=== PATIENT | female | born 1990 | race African-American/Black ===

== ENCOUNTER 2019-12-12 07:41 | Emergency (ER) | payer OTHER, SELFPAY ==
--- NOTE | ~2019-12-12 | XR_ITS ---
EXAMINATION: XR shoulder LT min 2V INDICATION: Left shoulder pain TECHNIQUE: Four views of the left shoulder are obtained. COMPARISON: None available FINDINGS: There is no fracture, dislocation, or subluxation. The bones, soft tissues, and joint space s are normal. IMPRESSION: 1. No acute osseous abnormality. Reviewed, dictated and finalized at location A. [employer] PROFESS[employer]
--- NOTE | ~2019-12-12 | US_ITS ---
EXAMINATION: US venous doppler UE LT DATE: 12/12/2019 08:34 INDICATION: Left upper limb swelling TECHNIQUE: Grayscale ultrasound images without and with compression and Doppler ultrasound images of the left upper extremity veins were obtained. COMPARISON: None. FINDINGS: The left internal jugular vein, subclavian vein, axillary vein, brachial veins, basilic vein, cephali c vein, radial vein, and ulnar vein are patent. IMPRESSION: 1. No evidence of deep venous thrombosis. Reviewed, dictated and finalized at location A. [employer]
[2019-12-12 07:54] VITALS: BP 136/66; PULSE 103; RESP 20; TEMP 36.2; O2SAT 98
--- NOTE | 2019-12-12 08:18 | ED.UPPEXIN ---
HPI - Extremity Injury (Upper) General Chief Complaint: Extremity Injury, Upper Stated Complaint: Left arm swelling Time Seen by Provider: 12/12/19 07:51 Source: patient Mode of arrival: ambulatory Limitations: no limitations History of Present Illness HPI narrative: This patient is a 29 year old right hand dominant female who presents for evaluation of left shoulder pain. She states she noticed pain 2 days. She has pain with movement of her left shoulder. She noticed this morning she had left shoulder swelling. She denies fever, chills, nausea, vomiting, abdominal pain or so. She denies trauma. She does lift her 3 year old son frequently. complaint: injury to: left and shoulder Onset (ago): day(s) (2) Related Data Allergies Allergy/AdvReac Type Severity Reaction Status Date / Time Shrimp Allergy Mild Swelling Uncoded 12/12/19 07:56 Review of Systems Review of Systems: All systems reviewed & are unremarkable except as noted in HPI and below Constitutional: Constitutional: Denies chills and Denies fever(s) Cardiovascular: Cardiovascular: Denies chest pain Respiratory: Respiratory: Denies cough and Denies dyspnea Gastrointestinal: Gastrointestinal: Denies abdominal pain, Denies nausea and Denies vomiting PMFSH Past Medical History Medical History (Updated 12/12/19 @ 10:02 by Tawanna Rm MD) Asthma Surgical History Surgical History (Updated 12/12/19 @ 09:58 by Tawanna Rm MD) No pertinent past surgical history Social History Social History (Updated 12/12/19 @ 09:58 by Tawanna Rm MD) Smoking status: Never smoker Alcohol intake: never Substance use: never Exam Const: General: no acute distress and alert Orientation/consciousness: patient oriented x3 HENMT: Face and sinus: face symmetric Eyes: EOM: EOMs intact bilaterally Resp: Effort & Inspection: normal respiratory effort and no retractions Auscultation: clear to auscultation bilaterally Cardio: Rate: regular rate Rhythm: regular rhythm Heart sounds: no murmurs GI: GI Palp: Yes Soft to palpation, No Tenderness to palpation present (GI), No Guarding due to palpation present (GI) and No Rigid due to palpation Skin: General skin exam: normal color Rashes: no rashes Neuro: General: patient oriented x3 and moves all extremities Extrem: Other: TTP left shoulder at AC joint, no appreciable swelling, erythema, Full ROM Psych: Mental Status: mental status grossly normal Affect: normal affect Course Reevaluation(s) Reevaluation #1: I discussed with patient xray and US were unremarkable. I discussed she is likely suffering from muscular or tendon issue. I discussed discharge treatment. Date: 12/12/19 Time: 09:59 Vital Signs Vital signs: Vital Signs Temperature 97.2 F L 12/12/19 07:54 Pulse Rate 103 H 12/12/19 07:54 Respiratory Rate 20 12/12/19 07:54 Blood Pressure 136/66 12/12/19 07:54 Pulse Oximetry 98 12/12/19 07:54 Temperature 97.2 F L 12/12/19 07:54 Pulse Rate 101 H 12/12/19 08:51 Respiratory Rate 12/12/19 07:54 Blood Pressure 135/89 12/12/19 08:51 Pulse Oximetry 100 12/12/19 08:51 MDM - Extremity Injury (Upper) Imaging Data Radiologist's impression: ITS Impressions Shoulder X-Ray 12/12/19 08:10 IMPRESSION: 1. No acute osseous abnormality. Venous Doppler Study 12/12/19 08:40 IMPRESSION: 1. No evidence of deep venous thrombosis. Discharge Plan Discharge Clinical Impression: Left shoulder pain Patient Disposition: Home, Self-Care Condition: Stable Instructions: Rotator Cuff Tendinitis (ED), Shoulder Pain (ED) Additional Instructions: Please ready discharge instructions on shoulder pain and tendonitis for treatment. Follow up with your primary care physician if no improvement after 1 week. Prescriptions: New naproxen 500 mg tablet 500 mg PO BID PRN (Reason: pain) Qty: 14 RF: 0 Follow-up/Re
[2019-12-12 08:51] VITALS: BP 135/89; PULSE 101; O2SAT 100
[2019-12-12] MEDS: IBUPROFEN 400 MG TABLET 800 MG PO (09:22)
== END 2019-12-12 10:10 | disposition home or self-care (01) ==
PROVIDERS: Emergency Provider General Practice
DX: M25.512 Pain in left shoulder (principal); J45.909 Unspecified asthma, uncomplicated
CPT/HCPCS: 73030; 93971; 99284; A9270